=== PATIENT | male | born 1960 | race Caucasian/White ===

== ENCOUNTER 2022-01-15 15:43 | Emergency (ER) | payer OTHER ==
[~2022-01-15] VITALS: Ht 167.6 cm; Wt 70.8 kg
[2022-01-15 16:05] VITALS: BP 187/101
[2022-01-15] MEDS ORDERED: LACT-103 PO (16:34)
--- NOTE | 2022-01-15 16:50 | NUR ---
BP ON DISCHARGE 183/101. PER ERMD PT OK TO BE D/C.
[2022-01-15 16:51] VITALS: BP 183/106
--- NOTE | 2022-01-15 16:51 | NUR ---
Patient discharged with v/s stable. Written and verbal after care instructions given FOR CONSTIPATION AND HYPERTENSION and explained. Patient alert, oriented and verbalized understanding of instructions. Ambulatory with steady gait. All questions addressed prior to discharge. ID band removed. Patient advised to follow up with PMD. Rx of LACTULOSE given. Patient educated on indication of medication including possible reaction and side effects. Opportunity to ask questions provided and answered.
[2022-01-16] MEDS ORDERED: DOCU-299 PO (15:29)
== END 2022-01-15 16:51 | disposition home or self-care (01) ==
LOC: MED 15:43
DX: K59.00 Constipation, unspecified (principal); I10 Essential (primary) hypertension; E11.9 Type 2 diabetes mellitus without complications; Z79.4 Long term (current) use of insulin; Z79.899 Other long term (current) drug therapy
CPT/HCPCS: 99283

== ENCOUNTER 2022-01-16 13:20 | Emergency (ER) | payer OTHER ==
[~2022-01-16] VITALS: Ht 167.6 cm; Wt 117.9 kg
[~2022-01-16 13:20] MED LIST: LACT-103 PO
[2022-01-16 13:25] VITALS: BP 193/102
--- NOTE | 2022-01-16 13:37 | NUR ---
PT AMBULATE TO ROOM 5 . PT IN GOWN
--- NOTE | 2022-01-16 13:46 | NUR ---
61YR OLD MALE BIB SELF C/O CONSTIPATION AND ABD PAIN X6DAYS. BLOOD IN STOOL WHEN STRAINING TO HAVE A BOWEL MOVEMENT. ABD PAIN STARTED TODAY MID GASTRIC. 6/10 PAIN. DENIES SOB OR CP . DENIES FEVER OR N/V. PT IS A&OX4 YEMENI SPEAKING ONLY. PT IN GOWN SIDE RAILS UPX 1. BED AT LOWEST POSITION. NKDA HTN DM
[2022-01-16] MEDS ORDERED: MAGNESIUM CITRATE 300 ML BTL PO ONE (14:05)
[2022-01-16] MEDS ORDERED: DOCUSATE SODIUM 250 MG GELCAP PO ONE (14:05)
[2022-01-16] MEDS ORDERED: SODIUM PHOSPHATE 118 ML ENEM RC ONE (14:05)
[2022-01-16 14:33] LABS: BASOPHILS # (AUTO) 0.1 K/uL (0.00-0.22); EOSINOPHILS # (AUTO) 0.2 K/uL (0-0.4); HEMATOCRIT 37.6 % (36-52); HEMOGLOBIN 12.5 g/dL (12.0-18.0); LYMPHOCYTES # (AUTO) 2.5 K/uL (2.0-11.5); LYMPHOCYTES % (AUTO) 25.4 % (20.5-51.1); MEAN CORPUSCULAR HEMOGLOBIN 31 pg (27-31); MEAN CORPUSCULAR HGB CONC 33 g/dL (33-37); MONOCYTES # (AUTO) 0.7 K/uL (0.8-1.0); MONOCYTES % (AUTO) 7.2 % (1.7-9.3); NEUTROPHILS # (AUTO) 6.3 K/uL (1.8-7.7); NEUTROPHILS % (AUTO) 64.4 % (42.2-75.2); PLATELET COUNT (AUTO) 212 K/uL (140-450); RED CELL DISTRIBUTION WIDTH 14.6 % (11.6-13.7); WHITE BLOOD COUNT (AUTO) 9.7 K/uL (4.8-10.8)
[2022-01-16 15:02] LABS: ALBUMIN 3.5 g/dL (3.4-5.0); ANION GAP 15.4 (8-16); CARBON DIOXIDE 24.6 mmol/L (21-32); TOTAL BILIRUBIN 0.6 mg/dL (0.0-1.0)
--- NOTE | 2022-01-16 15:20 | NUR ---
CALLED @ [phone]; STATUS UPDATE GIVEN. WILL RECONTACT WITH UPDATES PER REQUEST.
[2022-01-16] MEDS ORDERED: DOCU-299 PO (15:29)
--- NOTE | 2022-01-16 15:29 | NUR ---
PT HAS HAD TWO BOWEL MOVMENTS SINCE FLEETS ENEMA. DENIES ANY BLOOD IN STOOL.
--- NOTE | 2022-01-16 16:00 | NUR ---
PATIENTS B/P HIGH 188/106 DR [facility] NOTIFED OF B/P AND IS OK WITH DC FOR PT
--- NOTE | 2022-01-16 16:02 | NUR ---
61/M PRESENTS TO ED WITH C/O CONSTIPATION, PATIENT STATES HE WAS SEEN HERE YESTERDAY WITH THE SAME COMPLAINT AND GIVEN RX OF GOLYTELY, STATES HE HAS STILL NOT FOUND RELIEF. PATIENT C/O ABDOMINAL PAIN TODAY AND NAUSEA, DENIES VOMITING, FEVERS.
[2022-01-16 16:05] VITALS: BP 188/106
--- NOTE | 2022-01-16 16:05 | NUR ---
Patient discharged with v/s stable. Written and verbal after care instructions given and explained. Patient alert, oriented and verbalized understanding of instructions. Ambulatory with steady gait. All questions addressed prior to discharge. ID band removed. Patient advised to follow up with PMD. Rx of COLACE given. Patient educated on indication of medication including possible reaction and side effects. Opportunity to ask questions provided and answered.
--- NOTE | 2022-01-16 16:10 | NUR ---
The patient's care was reviewed and supervised by Malou Mendez RN.
== END 2022-01-16 16:05 | disposition home or self-care (01) ==
LOC: MED 13:20
DX: K59.00 Constipation, unspecified (principal); Z20.822 Contact with and (suspected) exposure to COVID-19; I10 Essential (primary) hypertension; E11.9 Type 2 diabetes mellitus without complications; Z79.4 Long term (current) use of insulin; Z79.899 Other long term (current) drug therapy
CPT/HCPCS: 36415; 80053; 85025; 99284

== ENCOUNTER 2022-09-27 15:50 | Emergency (ER) | payer OTHER ==
[~2022-09-27] VITALS: Ht 167.6 cm; Wt 90.7 kg
[~2022-09-27 15:50] MED LIST changes: +DOCU-299 PO; -LACT-103 PO
[2022-09-27 16:17] VITALS: BP 195/115
[2022-09-27] MEDS ORDERED: LIDOCAINE MPF 1% 10 MG/ML VIAL INJ ONE (16:50)
[2022-09-27] MEDS ORDERED: ACETAMINOPHEN 325 MG TAB PO ONE (16:50)
--- NOTE | 2022-09-27 17:20 | NUR ---
Provider at bedside for laceration repair
[2022-09-27] MEDS ORDERED: BACI-416 TP (17:48)
[2022-09-27] MEDS ORDERED: ACET-9882 PO (17:48)
--- NOTE | 2022-09-27 18:07 | NUR ---
Patient discharged with v/s stable. Written and verbal after care instructions given and explained. Patient alert, oriented and verbalized understanding of instructions. Ambulatory with steady gait. All questions addressed prior to discharge. ID band removed. Patient advised to follow up with PMD. Rx of BACITRACIN, ACETAMINOPHEN given. Patient educated on indication of medication including possible reaction and side effects. Opportunity to ask questions provided and answered.
== END 2022-09-27 18:06 | disposition home or self-care (01) ==
LOC: MED 15:50
DX: S61.011A Laceration without foreign body of right thumb without damage to nail, initial encounter (principal); E11.9 Type 2 diabetes mellitus without complications; I10 Essential (primary) hypertension; Z79.4 Long term (current) use of insulin; Z79.899 Other long term (current) drug therapy; W26.8XXA Contact with other sharp object(s), not elsewhere classified, initial encounter; Y93.89 Activity, other specified; Y92.89 Other specified places as the place of occurrence of the external cause; Y99.8 Other external cause status
CPT/HCPCS: 12001; 73140; 90471; 90715; 99283; J2001